=== PATIENT | male | born 1985 | race African-American/Black ===

== ENCOUNTER 2016-12-31 11:16 | Inpatient (IN) | payer SELFPAY ==
[~2016-12-31] VITALS: Ht 180.3 cm; Wt 57.8 kg
[2016-12-31 11:17] VITALS: BP 160/89; PULSE 89; RESP 17; TEMP 99.8; O2SAT 99
--- NOTE | 2016-12-31 11:55 | PD ---
HPI Chief Complaint: ENT Complaint Time Seen by Provider: 11:55 Travel History International Travel<30 days: No Contact w/Intl Traveler<30days: No Traveled to known affect area: No History of Present Illness HPI 31 YO M presents to the ED for evaluation of 5 day history of sore throat, difficulty swallowing his own secretions and right-sided ear pain. Patient endorses subjective fevers. He denies sinus congestion, rhinorrhea, cough, breathing difficulties, nausea or vomiting. Denies sick contacts. He's been treating with [id number] products with no improvement of symptoms. Patient is a current smoker. [facility] Past Medical History Medical History: Denies Significant Hx Social History Alcohol Use: Yes Tobacco Use: Yes Substance Use: No Allergies-Medications (Allergen,Severity, Reaction): Coded Allergies: No Known Allergies (Unverified , 12/31/16) Reported Meds & Prescriptions Reported Meds & Active Scripts Active No Active Prescriptions or Reported Medications Review of Systems Except as stated in HPI: all other systems reviewed are Neg Physical Exam Narrative GENERAL: Well-nourished, well-developed black male in no acute distress. Hot potato voice. SKIN: Warm and dry. HEAD: Normocephalic. Atraumatic. EYES: No scleral icterus. No injection or drainage. PERRLA. EOMI. ENT: Pearly martinez tympanic membranes bilaterally. Serous effusion in the right ear. Nasal mucosa is moist. Oropharynx with deep red erythema and marked edema of the right sided tonsil. Mallampati 3. Uvula midline. Airway patent. NECK: Supple, trachea midline. No JVD. Tender right-sided anterior cervical lymphadenopathy. CARDIOVASCULAR: Regular rate and rhythm without murmurs, gallops, or rubs. No carotid bruits. 2+ DP and radial pulses bilaterally. RESPIRATORY: Breath sounds clear and equal bilaterally. No accessory muscle use. GASTROINTESTINAL: Abdomen soft, non-tender, nondistended. + Bowel sounds MUSCULOSKELETAL: No cyanosis, or edema. Ambulatory. Moves extremities spontaneously. BACK: Nontender without obvious deformity. No CVA tenderness. Data Data Last Documented VS Vital Signs Date Time Temp Pulse Resp B/P Pulse Ox O2 Delivery O2 Flow Rate FiO2 12/31/16 11:17 99.8 89 17 160/89 99 Orders Group A Rapid Strep Screen (12/31/16 11:55) Basic Metabolic Panel (Bmp) (12/31/16 12:01) Complete Blood Count With Diff (12/31/16 12:01) Blood Culture (12/31/16 12:01) Ct Soft Tiss Neck W Iv Cont (12/31/16 12:01) Iv Access Insert/Monitor (12/31/16 12:01) Ibuprofen (Motrin) (12/31/16 12:15) Methylprednisolone So Succ Inj (Solumedr (12/31/16 12:15) Clindamycin Inj (Cleocin Inj) (12/31/16 12:15) Sodium Chloride 0.9% Flush (Ns Flush) (12/31/16 12:15) Sodium Chlor 0.9% 1000 Ml Inj (Ns 1000 M (12/31/16 12:15) Consult Ent (12/31/16 ) (Hub Use Only)Inp Phy Cons/Ref (12/31/16 ) Strep Culture (Group A) (12/31/16 12:10) Admit Order (Ed Use Only) (12/31/16 12:55) Labs Laboratory Tests Test 12/31/16 12:05 White Blood Count 16.0 TH/MM3 Red Blood Count 4.79 MIL/MM3 Hemoglobin 14.9 GM/DL Hematocrit 45.5 % Mean Corpuscular Volume 95.0 FL Mean Corpuscular Hemoglobin 31.0 PG Mean Corpuscular Hemoglobin 32.7 % Concent Red Cell Distribution Width 12.7 % Platelet Count 120 TH/MM3 Mean Platelet Volume 10.8 FL Neutrophils (%) (Auto) 81.3 % Lymphocytes (%) (Auto) 8.2 % Monocytes (%) (Auto) 10.2 % Eosinophils (%) (Auto) 0.0 % Basophils (%) (Auto) 0.3 % Neutrophils # (Auto) 13.0 TH/MM3 Lymphocytes # (Auto) 1.3 TH/MM3 Monocytes # (Auto) 1.6 TH/MM3 Eosinophils # (Auto) 0.0 TH/MM3 Basophils # (Auto) 0.0 TH/MM3 CBC Comment DIFF FINAL Differential Comment Sodium Level 137 MEQ/L Potassium Level 3.8 MEQ/L Chloride Level 102 MEQ/L Carbon Dioxide Level 26.9 MEQ/L Anion Gap 8 MEQ/L Blood Urea Nitrogen 11 MG/DL Creatinine 0.76 MG/DL Estimat Glomerular Filtration 144 ML/MIN Rate Random Glucose 109 MG/DL Calcium Level 9.4 MG/DL [facility] Medical Decision Making Medical Screen Exam Complete: Yes Emergency Medical Condition: Yes Differential Diagnosis Pharyngitis versus strep pharyngitis versus peritonsillar abscess versus deep space neck infection versus other Narrative Course 31-year-old male presents to the ED for evaluation of 5 day history of right- sided throat pain, right ear pain, difficulty swallowing secretions and subjective fevers. Vitals reviewed, low-grade fever on presentation. Physical exam reveals hot potato voice, marked edema and deep erythema of the right sided tonsil with right-sided anterior cervical LAD and a serous effusion of the right and tympanic membrane. Consistent with right peritonsillar abscess. Patient was administered IV clindamycin, dexamethasone, fluids. I discussed the possibility of admission with the patient who is agreeable. I spoke with Dr. Cole's nurse who agrees that he will consult on the patient. Leukocytosis of 16 with a left shift. CT pending. Dr. Rivera, medicine service agrees to accept the patient. Please see medicine and ENT notes for disposition. Diagnosis Primary Impression: Peritonsillar abscess Scripts No Active Prescriptions or Reported Meds Demetria Melo Dec 31, 2016 11:55
[2016-12-31] MEDS ORDERED: SODIUM CHLOR 0.9% 1000 ML INJ 1,000 ML IV ONE (12:15)
[2016-12-31] MEDS ORDERED: methylPREDNISolone SOD SUCC 125 MG/2 ML VIAL IV ONE (12:15)
[2016-12-31] MEDS ORDERED: SODIUM CHLORIDE 0.9% FLUSH 10 ML FLUSH IVF PRN (12:15)
[2016-12-31] MEDS ORDERED: IBUPROFEN 800 MG TAB PO ONE (12:15)
[2016-12-31] MEDS ORDERED: CLINDAMYCIN INJ 900 MG in SODIUM CHLORIDE 0.9% INJ 100 ML IV ONE (12:15)
--- NOTE | 2016-12-31 12:19 | PD ---
Data Data Last Documented VS Vital Signs Date Time Temp Pulse Resp B/P Pulse Ox O2 Delivery O2 Flow Rate FiO2 12/31/16 11:17 99.8 89 17 160/89 99 Orders Group A Rapid Strep Screen (12/31/16 11:55) Basic Metabolic Panel (Bmp) (12/31/16 12:01) Complete Blood Count With Diff (12/31/16 12:01) Blood Culture (12/31/16 12:01) Ct Soft Tiss Neck W Iv Cont (12/31/16 12:01) Iv Access Insert/Monitor (12/31/16 12:01) Ibuprofen (Motrin) (12/31/16 12:15) Methylprednisolone So Succ Inj (Solumedr (12/31/16 12:15) Clindamycin Inj (Cleocin Inj) (12/31/16 12:15) Sodium Chloride 0.9% Flush (Ns Flush) (12/31/16 12:15) Sodium Chlor 0.9% 1000 Ml Inj (Ns 1000 M (12/31/16 12:15) MDM Supervised Visit with JJ: Yes Narrative Course I, Dr. Mcdonnlel, have reviewed the advance practice practioner's documentation and am in agreement, met with the patient face to face, made the diagnosis, and the medical decision making was done by me. *My assessment and Findings: 31-year-old male with 5 days of sore throat primarily right sided. Subjective fevers. Exam shows significant right sided posterior pharyngeal edema with displacement of the structures towards the left , uvular deviation. Patient is able to tolerate his own secretions but with significant pain. He does have slight trismus with opening the mouth. No neck stiffness and the floor the mouth is soft. Highly suspicious for peritonsillar abscess, less likely retropharyngeal abscess, Fco's angina or dental abscess. Patient treated with clindamycin, steroids. ENT was consulted given the size of the clinical peritonsillar abscess and CT will be obtained to evaluate for drainable fluid collection, rule out retropharyngeal abscess. Scripts No Active Prescriptions or Reported Meds Gisele Mcdonnell MD Dec 31, 2016 12:18
[2016-12-31 12:30] LABS: BASOPHIL % 0.3 % (0.0-2.0); HEMATOCRIT 45.5 % (39.0-51.0); HEMO FLAGS DIFF FINAL; LYMPH % 8.2 % (9.0-44.0); LYMPHOCYTE # 1.3 TH/MM3 (1.0-4.8); MEAN CORPUSCULAR HGB CONC 32.7 % (32.0-36.0); MONO % 10.2 % (0.0-8.0); NEUT % 81.3 % (16.0-70.0); PLATELET COUNT 120 TH/MM3 (150-450); RED BLOOD COUNT 4.79 MIL/MM3 (4.50-5.90); RED CELL DISTRIBUTION WIDTH 12.7 % (11.6-17.2)
[2016-12-31 12:50] LABS: BICARBONATE 26.9 MEQ/L (21.0-32.0)
[2016-12-31 13:00] LABS: POTASSIUM 3.8 MEQ/L (3.5-5.1)
[2016-12-31] MEDS ORDERED: IOHEXOL 350 MG/ML 10 ML VIAL (for RAD DIAG) IV ONE (13:00)
--- NOTE | 2016-12-31 13:43 | RADRPT ---
EXAM DATE/TIME: 12/31/2016 12:55 [facility] COMPARISON: No previous studies available for comparison. INDICATIONS : Sore throat and right neck pain for 5 days, evaluate for abscess. IV CONTRAST: 69 cc Omnipaque 350 (iohexol) IV RADIATION DOSE: 15.49 CTDIvol (mGy) MEDICAL HISTORY : None SURGICAL HISTORY : ENCOUNTER: Initial ACUITY: 4 - 6 days PAIN SCALE: 3/10 LOCATION: Right neck TECHNIQUE: Volumetric scanning of the neck was performed. Using automated exposure control and adjustment of th e mA and/or kV according to patient size, radiation dose was kept as low as reasonably achievable to obtain optimal diagnostic quality images. DICOM format image data is available electronically for r eview and comparison. FINDINGS: There is an abscess involving the right tonsil with minimal airway compromise extending into the ling ual artery space. The left tonsil is unremarkable. There is minimal nonspecific adenopathy evident. Low neck is unremarkable. CONCLUSION: 2.3 cm right tonsillar abscess. Deniz Tejeda MD FACR on December 31, 2016 at 13:40 Board Certified Radiologist. This report was verified electronically.
[2016-12-31] MEDS ORDERED: SODIUM CHLORIDE 0.9% FLUSH 10 ML FLUSH IV FLUSH PRN (14:00)
[2016-12-31] MEDS ORDERED: NALOXONE HCL 0.4 MG/ML AMP IV PRN (14:00)
[2016-12-31] MEDS ORDERED: ONDANSETRON HCL 4 MG/2 ML VIAL IVP PRN (14:00)
[2016-12-31] MEDS ORDERED: ACETAMINOPHEN 325 MG TAB PO PRN ×2 (14:00)
[2016-12-31] MEDS ORDERED: MORPHINE SULFATE 4 MG/ML INJ IV PRN (14:00)
--- NOTE | 2016-12-31 14:47 | HHI.HP ---
[facility] Primary Care Physician Admission Diagnosis right peritonsillar abscess Diagnoses: Chief Complaint: Sore throat Travel History International Travel<30 Days: No Contact w/Intl Traveler <30 Da: No Traveled to Known Affected Are: No History of Present Illness The patient is a 31-year-old male with no past medical history who is presenting to the hospital with a sore throat and swelling. He says the symptoms started 1 week ago. He thought it was an ordinary sore throat and used salt water gargles. The pain continued to increase and he noticed swelling on the right side of his neck. He also noticed that the inside of his mouth was becoming very swollen as well. He said the swelling continued to increase and crossed the midline of the back of his throat. He took an aspirin yesterday to help relieve his symptoms. He has had a hard time eating and the last thing he ate was chicken soup yesterday. He has been able to drink water but he has to force it down. He is able to swallow his saliva. He states that his right ear has been starting to hurt him as well. He has been experiencing chills quite often. He has had muffled speech since the beginning of his sore throat. The patient states that he has multiple cavities in his mouth, located in the back lower teeth on the right side. He has not been seeing a dentist. His girlfriend says she had a tonsil infection recently which cleared up with supportive care. Review of Systems Except as stated in HPI: all other systems reviewed are Neg Past Family Social History Past Medical History The patient denies medical history Past Surgical History The patient denies any previous surgery Allergies: Coded Allergies: No Known Allergies (Unverified , 12/31/16) Active Ordered Medications Current Medications Medications (Trade) Dose Ordered Sig/Parveen Route Start Time Stop Time Status Last Admin Sodium Chloride 2 ml 2 ml UNSCH PRN IVF 12/31/16 12:15 (NS 1000 ml Inj) 1,000 ml @ 100 mls/hr Q10H IV 12/31/16 13:55 UNV (NS Flush) 2 ml UNSCH PRN IV FLUSH 12/31/16 14:00 UNV (NS Flush) 2 ml BID IV FLUSH 12/31/16 21:00 UNV (Tylenol) 650 mg Q4H PRN PO 12/31/16 14:00 UNV (Zofran Inj) 4 mg Q6H PRN IVP 12/31/16 14:00 UNV (Tylenol) 650 mg Q6H PRN PO 12/31/16 14:00 UNV (Roxicodone) 10 mg Q4H PRN PO 12/31/16 14:00 UNV (Morphine Inj) 4 mg Q3H PRN IV 12/31/16 14:00 UNV (Roxicodone) 5 mg Q4H PRN PO 12/31/16 14:00 UNV (Narcan Inj) 0.4 mg UNSCH PRN IV 12/31/16 14:00 UNV Senna/Docusate Sodium 1 tab 1 tab BID PO 12/31/16 21:00 UNV (Cleocin Inj/NS Inj) 106 ml @ 212 mls/hr Q8H IV 12/31/16 20:00 UNV (Decadron Inj) 8 mg Q8HR IV PUSH 12/31/16 20:00 UNV Family History His brother had tonsil problems Social History The patient smokes 1 pack every 3 days. He is trying to quit. He has social alcohol use. He uses marijuana. Physical Exam Vital Signs Vital Signs Date Time Temp Pulse Resp B/P Pulse Ox O2 Delivery O2 Flow Rate FiO2 12/31/16 11:17 99.8 89 17 160/89 99 Physical Exam GENERAL: Well-nourished, well-developed male in no acute distress. SKIN: Warm and dry. HEAD: Normocephalic. Atraumatic. EYES: No scleral icterus. No injection or drainage. PERRLA. EOMI. ENT: Oropharynx with deep red erythema and marked edema of the right sided tonsil. Airway patent. Muffled speech. NECK: Supple, trachea midline. No JVD. Tender right-sided anterior cervical lymphadenopathy. Also posterior cervical lymphadenopathy. CARDIOVASCULAR: Regular rate and rhythm without murmurs, gallops, or rubs. No carotid bruits. 2+ DP and radial pulses bilaterally. RESPIRATORY: Breath sounds clear and equal bilaterally. No accessory muscle use. GASTROINTESTINAL: Abdomen soft, non-tender, nondistended. + Bowel sounds MUSCULOSKELETAL: No cyanosis, or edema. Ambulatory. Moves extremities spontaneously. BACK: Nontender without obvious deformity. No CVA tenderness. NEURO: No gross deficits. PSYCH: Mood and affect appropriate. Laboratory Laboratory Tests Test 12/31/16 12:05 White Blood Count 16.0 Red Blood Count 4.79 Hemoglobin 14.9 Hematocrit 45.5 Mean Corpuscular Volume 95.0 Mean Corpuscular Hemoglobin 31.0 Mean Corpuscular Hemoglobin 32.7 Concent Red Cell Distribution Width 12.7 Platelet Count 120 Mean Platelet Volume 10.8 Neutrophils (%) (Auto) 81.3 Lymphocytes (%) (Auto) 8.2 Monocytes (%) (Auto) 10.2 Eosinophils (%) (Auto) 0.0 Basophils (%) (Auto) 0.3 Neutrophils # (Auto) 13.0 Lymphocytes # (Auto) 1.3 Monocytes # (Auto) 1.6 Eosinophils # (Auto) 0.0 Basophils # (Auto) 0.0 CBC Comment DIFF FINAL Differential Comment Sodium Level 137 Potassium Level 3.8 Chloride Level 102 Carbon Dioxide Level 26.9 Anion Gap 8 Blood Urea Nitrogen 11 Creatinine 0.76 Estimat Glomerular Filtration 144 Rate Random Glucose 109 Calcium Level 9.4 Date/Time Procedure Status Source Growth 12/31/16 12:15 Aerobic Blood Culture Received Blood Peripheral Pending 12/31/16 12:15 Anaerobic Blood Culture Received Blood Peripheral Pending 12/31/16 12:10 Group A Streptococcus Screen (GIORGIO) - Final Complete Throat 12/31/16 12:10 Group A Streptococcus Screen Received Throat Pending Result Diagram: 12/31/16 1205 12/31/16 1205 Imaging Last Impressions Neck CT 12/31/16 1201 Signed Impressions: Service Date/Time: Saturday, December 31, 2016 12:55 - CONCLUSION: 2.3 cm right tonsillar abscess. Deniz Tejeda MD FACR Assessment and Plan Assessment and Plan Tonsillar abscess The patient presented with a sore throat and right-sided facial swelling. CT scan showed a 2.3 cm right tonsillar abscess. Rapid strep negative. He was started on IV antibiotics and steroids. ENT was consulted. Has several cavities on the affected side which may have contributed. - continue IV clindamycin 900 mg every 8 hours. - start Decadron 8 mg IV q 8 hours. - await ENT evaluation. - keep the pt NPO with IVFs. - pain control with a bowel regimen. - monitor airway. - check a mono screen. HTN S/t pain. - pain control. - Vasotec as needed. Thrombocytopenia Possibly s/t infection. - monitor CBC. PPx: SCDs Code Status Full Discussed Condition With Pt, pt's girlfriend, Demetria Melo Physician Certification 2 Midnight Certification Type: Admission for Inpatient Services Order for Inpatient Services The services are ordered in accordance with Medicare regulations or non- Medicare payer requirements, as applicable. In the case of services not specified as inpatient-only, they are appropriately provided as inpatient services in accordance with the 2-midnight benchmark. Estimated LOS (days): 2 days is the estimated time the patient will need to remain in the hospital, assuming treatment plan goals are met and no additional complications. Post-Hospital Plan: Home Guillermo Rivera DO Dec 31, 2016 14:46
[2016-12-31] MEDS: SODIUM CHLOR 0.9% 1000 ML INJ 1,000 ML IV SCH (15:00)
[2016-12-31] MEDS ORDERED: ENALAPRILAT 1.25 MG/ML VIAL IV PUSH PRN (16:00)
[2016-12-31 16:55] LABS: TOTAL BILIRUBIN ADULT 1.9 MG/DL (0.2-1.0)
[2016-12-31 16:57] LABS: INDIRECT BILIRUBIN 1.6 MG/DL (0.0-0.8)
[2016-12-31 17:21] VITALS: BP 132/69; PULSE 89; RESP 18; TEMP 98.5; O2SAT 99
[2016-12-31 20:00] VITALS: BP 115/86; PULSE 75; PULSE 86; RESP 20; TEMP 98.4; O2SAT 97
[2016-12-31] MEDS: DOCUSATE SODIUM 50 MG/SENNA 8.6 MG TAB PO SCH (21:00)
[2016-12-31] MEDS ORDERED: oxyCODONE HCL ORAL CONC 20 MG/ML SYRINGE PO PRN (21:00)
[2016-12-31] MEDS: CLINDAMYCIN INJ 900 MG in SODIUM CHLORIDE 0.9% INJ 100 ML IV SCH (21:06)
[2016-12-31] MEDS: DEXAMETHASONE SOD PHOS 4 MG/ML VIAL IV PUSH SCH (21:12)
[2016-12-31] MEDS: SODIUM CHLORIDE 0.9% FLUSH 10 ML FLUSH IV FLUSH SCH (21:13)
[2016-12-31] MEDS: oxyCODONE HCL ORAL CONC 20 MG/ML SYRINGE PO PRN (21:17)
[2017-01-01] VITALS (8 sets, daily range): BP systolic 110–151; BP diastolic 56–64; PULSE 65–95; RESP 18–20; TEMP 96.4–98.3; O2SAT 96–100
[2017-01-01] MEDS: oxyCODONE HCL ORAL CONC 20 MG/ML SYRINGE PO PRN (01:47)
[2017-01-01] MEDS: SODIUM CHLOR 0.9% 1000 ML INJ 1,000 ML IV SCH ×3 (01:50→20:37)
[2017-01-01] MEDS: DEXAMETHASONE SOD PHOS 4 MG/ML VIAL IV PUSH SCH ×3 (04:54→20:36)
[2017-01-01] MEDS: CLINDAMYCIN INJ 900 MG in SODIUM CHLORIDE 0.9% INJ 100 ML IV SCH ×3 (04:55→20:37)
[2017-01-01 07:31] LABS: AUTOMATED NEUTROPHIL # 17.9 TH/MM3 (1.8-7.7); BASOPHIL % 0.1 % (0.0-2.0); HEMATOCRIT 42.3 % (39.0-51.0); HEMO FLAGS DIFF FINAL; LYMPH % 3.4 % (9.0-44.0); LYMPHOCYTE # 0.7 TH/MM3 (1.0-4.8); MEAN CELL VOLUME 94.9 FL (80.0-100.0); MEAN CORPUSCULAR HEMOGLOBIN 31.1 PG (27.0-34.0); MEAN CORPUSCULAR HGB CONC 32.8 % (32.0-36.0); MONO % 3.6 % (0.0-8.0); NEUT % 92.9 % (16.0-70.0); PLATELET COUNT 130 TH/MM3 (150-450); RED BLOOD COUNT 4.46 MIL/MM3 (4.50-5.90); RED CELL DISTRIBUTION WIDTH 12.7 % (11.6-17.2); WHITE BLOOD COUNT 19.3 TH/MM3 (4.0-11.0)
[2017-01-01] MEDS: SODIUM CHLORIDE 0.9% FLUSH 10 ML FLUSH IV FLUSH SCH ×2 (09:00→20:36)
[2017-01-01] MEDS: DOCUSATE SODIUM 50 MG/SENNA 8.6 MG TAB PO SCH ×2 (09:39→20:37)
--- NOTE | 2017-01-01 12:05 | HHI.PR ---
Subjective Remarks patient states feeling better- decrease pain more mouth opening, decrease swelling Objective Vitals Vital Signs Date Time Temp Pulse Resp B/P Pulse Ox O2 Delivery O2 Flow Rate FiO2 01/01/17 10:15 73 01/01/17 09:50 98 21 01/01/17 08:00 98.0 90 18 151/63 97 01/01/17 04:00 98.1 80 20 126/58 99 01/01/17 00:00 98.0 71 20 120/56 100 12/31/16 20:00 75 12/31/16 20:00 98.4 86 20 115/86 97 12/31/16 17:21 98.5 89 18 132/69 99 I/O 12/31/16 12/31/16 12/31/16 01/01/17 01/01/17 01/01/17 07:00 15:00 23:00 07:00 15:00 23:00 Intake Total 0 ml 360 ml Balance 0 ml 360 ml Intake Oral 0 ml 360 ml # Voids 0 2 # Bowel Movements 0 0 Result Diagram: 01/01/17 0650 12/31/16 1205 Imaging Last [address] 12/31/16 1201 Signed Impressions: Service Date/Time: Saturday, December 31, 2016 12:55 - CONCLUSION: 2.3 cm right tonsillar abscess. Deniz Tejeda MD FACR Objective Remarks awake and alert, oriented x 3 anicteric + right mandibular swelling right lower molar embedded and decayed no nuchal rigidity lungs clear regular rhythm abdomen soft extremities no edema A/P Assessment and Plan 31 years old ,male Right periTonsillar abscess right lower molar tooth decayed and deeply embedded The patient presented with a sore throat and right-sided facial swelling. CT scan showed a 2.3 cm right tonsillar abscess. Rapid strep negative. He was started on IV antibiotics and steroids. ENT was consulted. Has several cavities on the affected side which may have contributed. -on IV clindamycin 900 mg every 8 hours. - on Decadron 8 mg IV q 8 hours. - started on diet - pain control with a bowel regimen. - monitor airway. HTN S/t pain. - pain control. - Vasotec as needed. Thrombocytopenia Possibly s/t infection. - monitor CBC. Leukocytosis- secondary to infection + now on steroids elevated bilirubin -recheck in am- hepatic panel. PPx: SCDs UP and ambulating DC planning- on po antibiotics in 1-2 days pending clinical improvement Paola Mansfield MD Jan 01, 2017 12:05
[2017-01-02] VITALS: BP 115/57; PULSE 75; RESP 20; TEMP 98.2; O2SAT 98
[2017-01-02 04:00] VITALS: BP 109/52; PULSE 70; RESP 20; TEMP 97.8; O2SAT 98
[2017-01-02] MEDS: CLINDAMYCIN INJ 900 MG in SODIUM CHLORIDE 0.9% INJ 100 ML IV SCH (04:53)
[2017-01-02] MEDS: SODIUM CHLOR 0.9% 1000 ML INJ 1,000 ML IV SCH (04:53)
[2017-01-02] MEDS: DEXAMETHASONE SOD PHOS 4 MG/ML VIAL IV PUSH SCH ×2 (04:53→12:44)
[2017-01-02 08:00] VITALS: BP 118/59; PULSE 58; PULSE 76; RESP 18; TEMP 98; O2SAT 97
--- NOTE | 2017-01-02 08:09 | HHI.PR ---
Subjective Remarks feeling better, no jaw pain or pain during chewig tolerating regular diet Objective Vitals Vital Signs Date Time Temp Pulse Resp B/P Pulse Ox O2 Delivery O2 Flow Rate FiO2 01/02/17 04:00 97.8 70 20 109/52 98 01/02/17 00:00 98.2 75 20 115/57 98 01/01/17 20:00 65 01/01/17 20:00 96.4 95 20 110/64 96 01/01/17 16:00 98.3 92 18 126/60 96 01/01/17 12:00 98.3 95 18 130/63 97 01/01/17 10:15 73 01/01/17 09:50 98 21 I/O 01/01/17 01/01/17 01/01/17 01/02/17 01/02/17 01/02/17 07:00 15:00 23:00 07:00 15:00 23:00 Intake Total 360 ml 1955 ml 1279 ml 872 ml Balance 360 ml 1955 ml 1279 ml 872 ml Intake Oral 360 ml 360 ml 480 ml IV Total 1595 ml 799 ml 872 ml # Voids 2 2 2 1 # Bowel Movements 0 1 1 Result Diagram: 01/01/17 0650 12/31/16 1205 Imaging Last [address] 12/31/16 1201 Signed Impressions: Service Date/Time: Saturday, December 31, 2016 12:55 - CONCLUSION: 2.3 cm right tonsillar abscess. Deniz Tejeda MD FACR Objective Remarks awake and alert, oriented x 3 anicteric + right mandibular swelling. + tonsillar right swelling right lower molar embedded and decayed no nuchal rigidity lungs clear regular rhythm abdomen soft extremities no edema Procedures awake and alert, NAD anicteric throat- right tonsillar swelling decrease lungs clear regular rhythm abdomen soft extremities no edema A/P Assessment and Plan 31 years old ,male Right periTonsillar abscess- improving clincially right lower molar tooth decayed and deeply embedded tolerating regular diet change to po Clindamycin 450 mg po qid on DC change to po steroids short course on DC ENT ff DC if cleared with ENT with OP ff up not requiring IV pain meds HTN-secondary to pain- improved S/t pain. - pain control. Thrombocytopenia Possibly s/t infection. - check CBC today-improved - OP ff up - no bleeding tendencies Leukocytosis- secondary to infection + now on steroids - clinically improved - CBC as OP fter treatment course Elevated bilirubin- recheck hepatic panel- improved DC today- cleared with ENt OP ff up with Dr. Cole next week Meds- clindamycin 450 mg po qid regular diet activity as tolerated OP ff up with a PCP Paola Mansfield MD Jan 02, 2017 08:09
[2017-01-02] MEDS: SODIUM CHLORIDE 0.9% FLUSH 10 ML FLUSH IV FLUSH SCH (09:00)
[2017-01-02] MEDS: DOCUSATE SODIUM 50 MG/SENNA 8.6 MG TAB PO SCH (09:00)
[2017-01-02 09:32] LABS: HEMATOCRIT 42.3 % (39.0-51.0); MEAN CELL VOLUME 95.9 FL (80.0-100.0); MEAN CORPUSCULAR HEMOGLOBIN 31.6 PG (27.0-34.0); MEAN CORPUSCULAR HGB CONC 32.9 % (32.0-36.0); PLATELET COUNT 147 TH/MM3 (150-450); RED BLOOD COUNT 4.41 MIL/MM3 (4.50-5.90); RED CELL DISTRIBUTION WIDTH 12.7 % (11.6-17.2); REVIEW FLAG FINAL; WHITE BLOOD COUNT 19.5 TH/MM3 (4.0-11.0)
[2017-01-02 11:33] LABS: INDIRECT BILIRUBIN 0.4 MG/DL (0.0-0.8); TOTAL BILIRUBIN ADULT 0.5 MG/DL (0.2-1.0)
[2017-01-02 12:00] VITALS: BP 128/63; PULSE 75; RESP 18; TEMP 98.1; O2SAT 97
[2017-01-02] MEDS ORDERED: CLINDAMYCIN 150 MG CAP PO SCH (12:00)
[2017-01-02] MEDS ORDERED: CLIN150 PO (13:13)
[2017-01-02] MEDS ORDERED: MEDR4TAB PO (13:15)
== END 2017-01-02 13:38 | disposition home or self-care (01) | DRG 153 ==
LOC: NEPD 11:16 → NEDA 12:56 → N04A 15:58
PROVIDERS: ADMIT Internal Medicine; ATTEND Internal Medicine
DX: J36 Peritonsillar abscess (principal); D69.6 Thrombocytopenia, unspecified; I10 Essential (primary) hypertension; F17.210 Nicotine dependence, cigarettes, uncomplicated; K02.9 Dental caries, unspecified; F12.90 Cannabis use, unspecified, uncomplicated
CPT/HCPCS: 70491; 80048; 80076; 85025; 85027; 86308; 87040; 87081; 87880; 96365; 96375; J1100; J2930; J7030; Q9967